=== PATIENT | female | born 1995 | race Hispanic/Latino ===

== ENCOUNTER 2018-01-09 06:48 | Emergency (ER) | payer OTHER ==
[2018-01-09] MEDS ORDERED: ACETAMINOPHEN 500 MG TAB ONE (07:22)
[2018-01-09] MEDS ORDERED: CEFTRIAXONE/SWI 1gm 1 GM/10 ML SYR ONE (07:22)
[2018-01-09 07:43] LABS: Urine Bacteria >50 /HPF (<20)
[2018-01-09 07:44] LABS: Urine Culture Reflex Order NOT NEEDED; Urine Mucus 2+ /HPF (NONE SEEN)
[2018-01-09] MEDS ORDERED: NA CHLORIDE 0.9% 1,000 ML ONE ×3 (07:53→11:40)
[2018-01-09 08:08] LABS: Potassium 3.4 mEq/L (3.6-5.0)
[2018-01-09 08:09] LABS: Protime INR 1.3
[2018-01-09 08:17] LABS: Albumin 3.8 g/dL (3.2-5.5); Bilirubin Direct 0.2 mg/dL (0-0.2); Bilirubin Total 0.4 mg/dL (0.3-1.2); CKMB Creatine Kinase MB 0.5 ng/ml (0.3-4.0); Protein, Total 8.1 g/dL (6.0-8.3)
[2018-01-09] MEDS ORDERED: FENTANYL CITR 100 MCG/2 ML ONE (08:23)
[2018-01-09 08:30] LABS: Absolute Lymphocytes (CBC) 0.5 K/uL (0.7-4.9); Absolute Monocytes 2.7 K/uL (0.1-1.3); Absolute Neutrophil 20.3 K/uL (1.8-8.0); Basophils % 0.2 % (0-1.3); Hematocrit 33.9 % (36.0-45.0); Lymphocytes % 2.3 % (15.3-44.8); MCH 28.1 pg (27.0-35.0); MCV 83.6 fL (80-100); MPV 9.2 fL (7.6-11.3); Monocytes % 11.4 % (3.3-12.3); RBC Red Blood Cell Count 4.05 M/uL (3.86-4.86)
[2018-01-09 08:33] LABS: C-Reactive Protein 254.2 mg/L (<10.0)
[2018-01-09 09:32] LABS: Urine Blood 1+ (NEG); Urine Glucose NEGATIVE (NEG); Urine Protein 3+ (NEG); Urine Specific Gravity 1.025 (1.005-1.030); Urine pH 5.5 (5.0-7.0)
--- NOTE | 2018-01-09 09:56 | RAD REPORT ---
EXAM DESCRIPTION: CT - Stone Protocol - 01/09/2018 9:31 am CLINICAL HISTORY: Abdominal pain. Right flank pain. Right renal transplant. COMPARISON: None. TECHNIQUE: Computed axial tomography of the abdomen pelvis was obtained without oral or IV contrast. Lack of IV and oral contrast limits evaluation of solid organs, bowel, and vessels. Coronal reformat sadia images were obtained and reviewed. All CT scans are performed using dose optimization technique as appropriate and may include automated exposure control or mA/KV adjustment according to patient size. FINDINGS: The kidneys are small and atrophic. A 27 millimeter cystic mass extends off of the upper p ole of the right kidney. Nonobstructing bilateral renal calculi are present. A transplant kidney lies within the lower right abdomen/upper right pelvis. Mild stranding is present within the perirenal fat. Hydronephrosis is not seen. The transplant kidney is enlarged. . The liver, spleen, pancreas and adrenals appear grossly normal There is no evidence of diverticulitis. The appendix appears normal A tampon is present within the vagina IMPRESSION: Enlarged transplant kidney within the lower right abdomen/upper right pelvis with mild s tranding in the right perirenal fat. This is nonspecific. It could indicate infection, inflammation, rejection or acute tubular necrosis. An obstruction is not present
--- NOTE | 2018-01-09 10:27 | RAD REPORT ---
EXAM DESCRIPTION: Emma Single View01/09/2018 7:59 am CLINICAL HISTORY: Fever COMPARISON: none FINDINGS: The lungs appear clear of acute infiltrate. The heart is normal size IMPRESSION: No acute abnormalities displayed
[2018-01-09 10:41] LABS: Blood Morphology Comment NOT SEEN (NOT SEEN); Platelet Estimate ADEQ; Urine White Blood Cell Casts OK
--- NOTE | 2018-01-09 10:55 | RAD REPORT ---
EXAM DESCRIPTION: US - Abdomen Exam Limited - 01/09/2018 8:11 am CLINICAL HISTORY: Abdominal pain. COMPARISON: None. FINDINGS: The gallbladder wall is not thickened. A gallstone is not seen. The biliary tree is normal caliber. IMPRESSION: Unremarkable gallbladder ultrasound.
--- NOTE | 2018-01-09 11:39 | ER ---
Nurse's Notes [facility] Name: Viridiana Hughes Age: 22 yrs Sex: Female : 1995 Arrival Date: 01/09/2018 Time: 06:58 Bed 15 Private MD: Diagnosis: Sepsis;Pyelonephritis, transplanted kidney Presentation: 01/09 07:00 Presenting complaint: Patient states: diagnosed with a UTI couple of days ago sent home sv with antibiotic, doesn't feel any better. c/o suprapubic pain, epigastric pain, right flank pain, dizziness, "off balance." Denies burning with urination and no discharge. Transition of care: patient was not received from another setting of care. Onset of symptoms was January 05, 2018. Risk Assessment: Do you want to hurt yourself or someone else? Patient reports no desire to harm self or others. Care prior to arrival: None. 07:00 Method Of Arrival: Ambulatory sv 07:00 Acuity: KOJO 3 sv 07:00 Initial Sepsis Screen: Does the patient meet any 2 criteria? Temp <36.0*C (96.8*F)) or ss > 38.3*C (100.4*F). HR > 90 bpm. Does the patient have a suspected source of infection? Yes: Dysuria/Frequency/Urgency/UTI. 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 - Social history:: Smoking status: Patient/guardian denies using tobacco, Patient uses alcohol, but reports only rare drinking. - Ebola Screening: : No symptoms or risks identified at this time. Screenin:39 Abuse screen: Denies threats or abuse. Nutritional screening: No deficits noted. em Tuberculosis screening: No symptoms or risk factors identified. Fall Risk None identified. Assessment: 07:30 General: Appears in no apparent distress. uncomfortable, Behavior is calm, cooperative. em Pain: Complains of pain in right lower quadrant and right upper quadrant and suprapubic area Pain currently is 8 out of 10 on a pain scale. Neuro: Level of Consciousness is awake, alert, obeys commands, Oriented to person, place, time, situation. Cardiovascular: Capillary refill < 3 seconds Patient's skin is warm and dry. Respiratory: Airway is patent Respiratory effort is even, unlabored, Respiratory pattern is regular, symmetrical. GI: Abdomen is round non-distended. : Reports burning with urination, urinary frequency. Derm: Skin is intact, Skin is pink, warm \\T\\ dry. Musculoskeletal: Range of motion: intact in all extremities. 07:40 General: The previous assessment is accurate, call light remains within reach. . ss 08:30 Reassessment: Patient appears in no apparent distress at this time. Patient and/or em family updated on plan of care and expected duration. Pain level reassessed. Patient is alert, oriented x 3, equal unlabored respirations, skin warm/dry/pink. 09:30 Reassessment: Patient appears in no apparent distress at this time. Patient and/or em family updated on plan of care and expected duration. Pain level reassessed. Patient is alert, oriented x 3, equal unlabored respirations, skin warm/dry/pink. Patient states feeling better. 10:20 Reassessment: Patient appears in no apparent distress at this time. Patient and/or em family updated on plan of care and expected duration. Pain level reassessed. Patient is alert, oriented x 3, equal unlabored respirations, skin warm/dry/pink. rates pain 3/10 Patient denies pain at this time. 10:47 Reassessment: Patient appears in no apparent distress at this time. Patient and/or em family updated on plan of care and expected duration. Pain level reassessed. Patient is alert, oriented x 3, equal unlabored respirations, skin warm/dry/pink. 11:42 Reassessment: Patient appears in no apparent distress at this time. Patient is alert, em oriented x 3, equal unlabored respirations, skin warm/dry/pink. c/o chills, temp. rechecked 98.6, warm blanket given. Vital Signs: 07:14 BP 107 / 56; Pulse 128; Resp 18; Temp 101.5; Pulse Ox 99% on R/A; Weight 98.88 kg; sv Height 5 ft. 2 in. (157.48 cm); Pain 8/10; 08:36 BP 102 / 54; Pulse 107; Resp 18; Temp 100.3(O); Pulse Ox 99% on R/A; Pain 8/10; em 09:30 BP 97 / 49; Pulse 82; Resp 20; Pulse Ox 100% on R/A; em 10:19 BP 104 / 57; Pulse 82; Resp 16; Temp 98.5(O); Pulse Ox 99% on R/A; mh5 10:48 BP 123 / 63; Pulse 121; Resp 18; Temp 98.3(O); Pulse Ox 100% on R/A; Pain 4/10; em 11:28 BP 117 / 70; Pulse 106; Resp 16; Temp 98.6(O); Pulse Ox 99% on R/A; em 07:14 Body Mass Index 39.87 (98.88 kg, 157.48 cm) sv ED Course: 06:58 Patient arrived in ED. es 06:59 Ligia Giraldo FNP-C is PHCP. snw 06:59 Angel Luis Camilo MD is Attending Physician. snw 07:11 Triage completed. sv 07:15 Arm band placed on right wrist. sv 07:19 Kayden Ventura LVN is Primary Nurse. em 07:32 Urine Culture Sent. mh5 07:32 Urine Microscopic Only Sent. mh5 07:50 Initial lab(s) drawn, by in, sent to lab. Inserted saline lock: 20 gauge in right em antecubital area, using aseptic technique. Blood collected. 07:52 Patient has correct armband on for positive identification. Placed in gown. Bed in low mh5 position. Call light in reach. Side rails up X 1. Pillow given. monitoring and evaluation advisor on. Pulse ox on. NIBP on. 07:56 Ultrasound completed. Patient tolerated well. sg3 07:58 X-ray completed. Portable x-ray completed in exam room. Patient tolerated procedure mh1 well. 07:59 Chest Single View XRAY In Process Unspecified. EDMS 08:11 US Abdomen Limited In Process Unspecified. EDMS 08:49 Radiology exam delayed due to test not completed at this time. cw1 08:52 No provider procedures requiring assistance completed. em 09:31 CT completed. Patient moved to CT via wheelchair. Patient moved back from CT. cw1 09:31 CT Stone Protocol In Process Unspecified. EDMS 12:45 Patient transferred, IV remains in place. ss Administered Medications: 07:50 Drug: Tylenol 1000 mg Route: PO; em 08:47 Follow up: Response: No adverse reaction; Temperature is decreased em 08:00 Drug: Rocephin 1 grams Route: IV; Rate: calculated rate; Site: right antecubital; ss 08:47 Follow up: Response: No adverse reaction; IV Status: Completed infusion em 08:13 Drug: NS 0.9% (30 ml/kg) 30 ml/kg Route: IV; Rate: bolus; Site: right antecubital; em 12:47 Follow up: IV Status: Completed infusion; IV Intake: 2000ml em 08:30 Drug: fentaNYL (PF) 50 mcg Route: IVP; Site: right antecubital; ss 08:48 Follow up: Response: No adverse reaction; Pain is decreased em 11:40 Drug: fentaNYL (PF) 25 mcg Route: IVP; Site: right antecubital; em 12:41 Follow up: Response: No adverse reaction; Pain is decreased em 12:14 Drug: HydroCORTISONE 100 mg Route: IVP; Site: right antecubital; ss 12:41 Follow up: Response: No adverse reaction em 12:37 Drug: NS 0.9% 1000 ml Route: IV; Rate: 125 ml/hr; Site: right antecubital; em 12:41 Follow up: IV Status: Infusion continued upon transfer; IV Intake: 50ml em Point of Care Testing: Blood Glucose: 07:38 Blood Glucose: 118 mg/dL; mh5 Ranges: Intake: 12:41 IV: 50ml; Total: 50ml. em 12:47 IV: 2000ml; Total: 2050ml. em Outcome: 11:38 ER care complete, transfer ordered by . nikolay 12:44 Transferred by ground EMS to [facility], Transfer form completed. ss X-rays sent w/ patient. 12:44 Condition: good 12:44 Instructed on the need for transfer. 12:45 Patient left the ED. ss Addendum: 01/12/2018 17:39 Addendum: Culture Results: Positive urine culture. Phone call Attempt #1 culture report s s faxed to [facility]. Signatures: Dispatcher [employer] Avelina Morton, RN RN Ligia Morataya, STENCIL SPRAYER-C STENCIL SPRAYER-Csnw Germaine Rice Martha 1 Kayden Ventura, HANY ERICN Renea Fleming RN RN Belkis Walter 1 Charisse Gilmore [facility] Joseph, Loulou 3
--- NOTE | 2018-01-09 11:39 | EDPHYS ---
Physician Documentation [facility] Name: Viridiana Hughes Age: 22 yrs Sex: Female : 1995 Arrival Date: 01/09/2018 Time: 06:58 Bed 15 Private MD: ED Physician Angel Luis Camilo HPI: 01/09 07:48 This 22 yrs old Female presents to ER via Ambulatory with complaints of snw Urinary Problem. 07:48 The patient presents with abdominal pain in the lower abdomen, in the right upper snw quadrant, right lower quadrant. Onset: The symptoms/episode began/occurred suddenly, 3 day(s) ago, and became persistent. The symptoms do not radiate. Associated signs and symptoms: Pertinent positives: fever, nausea. The symptoms are described as crampy. Severity of pain: At its worst the pain was moderate in the emergency department the pain is unchanged. The patient has not experienced similar symptoms in the past. The patient has been recently seen by a physician: 2 day(s) ago, with similar presenting complaints, and apparently given a diagnosis of uti - given Nitrofurantoin. 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 - Social history:: Smoking status: Patient/guardian denies using tobacco, Patient uses alcohol, but reports only rare drinking. - Ebola Screening: : No symptoms or risks identified at this time. ROS: 07:47 Eyes: Negative for injury, pain, redness, and discharge, ENT: Negative for injury, snw pain, and discharge, Neck: Negative for injury, pain, and swelling, Cardiovascular: Negative for chest pain, palpitations, and edema, Respiratory: Negative for shortness of breath, cough, wheezing, and pleuritic chest pain, Back: Negative for injury and pain, : Negative for injury, bleeding, discharge, and swelling, MS/Extremity: Negative for injury and deformity, Skin: Negative for injury, rash, and discoloration, Neuro: Negative for headache, weakness, numbness, tingling, and seizure. 07:47 Constitutional: Positive for body aches, chills, fever, malaise, poor PO intake. 07:47 Abdomen/GI: Positive for abdominal pain, nausea, of the suprapubic area, right upper quadrant and right lower quadrant. Exam: 07:45 Head/Face: Normocephalic, atraumatic. Eyes: Pupils equal round and reactive to light, snw extra-ocular motions intact. Lids and lashes normal. Conjunctiva and sclera are non-icteric and not injected. Cornea within normal limits. Periorbital areas with no swelling, redness, or edema. ENT: Nares patent. No nasal discharge, no septal abnormalities noted. Tympanic membranes are normal and external auditory canals are clear. Oropharynx with no redness, swelling, or masses, exudates, or evidence of obstruction, uvula midline. Mucous membranes moist. Neck: Trachea midline, no thyromegaly or masses palpated, and no cervical lymphadenopathy. Supple, full range of motion without nuchal rigidity, or vertebral point tenderness. No Meningismus. Chest/axilla: Normal chest wall appearance and motion. Nontender with no deformity. No lesions are appreciated. 07:45 Respiratory: Lungs have equal breath sounds bilaterally, clear to auscultation and percussion. No rales, rhonchi or wheezes noted. No increased work of breathing, no retractions or nasal flaring. Skin: Warm, dry with normal turgor. Normal color with no rashes, no lesions, and no evidence of cellulitis. MS/ Extremity: Pulses equal, no cyanosis. Neurovascular intact. Full, normal range of motion. Neuro: Awake and alert, GCS 15, oriented to person, place, time, and situation. Cranial nerves II-XII grossly intact. Motor strength 5/5 in all extremities. Sensory grossly intact. Cerebellar exam normal. Normal gait. Psych: Awake, alert, with orientation to person, place and time. Behavior, mood, and affect are within normal limits. 07:45 Back: No spinal tenderness. No costovertebral tenderness. Full range of motion. 07:45 Constitutional: The patient appears alert, awake, anxious, uncomfortable. 07:45 Cardiovascular: Rate: tachycardic, Rhythm: regular, Pulses: no pulse deficits are appreciated, Heart sounds: murmur, Edema: is not appreciated, JVD: is not appreciated. 07:45 Abdomen/GI: Inspection: abdomen appears normal, Palpation: moderate abdominal tenderness, in the suprapubic area and anterior aspect of right lateral abdomen. Vital Signs: 07:14 BP 107 / 56; Pulse 128; Resp 18; Temp 101.5; Pulse Ox 99% on R/A; Weight 98.88 kg; sv Height 5 ft. 2 in. (157.48 cm); Pain 8/10; 08:36 BP 102 / 54; Pulse 107; Resp 18; Temp 100.3(O); Pulse Ox 99% on R/A; Pain 8/10; em 09:30 BP 97 / 49; Pulse 82; Resp 20; Pulse Ox 100% on R/A; em 10:19 BP 104 / 57; Pulse 82; Resp 16; Temp 98.5(O); Pulse Ox 99% on R/A; mh5 10:48 BP 123 / 63; Pulse 121; Resp 18; Temp 98.3(O); Pulse Ox 100% on R/A; Pain 4/10; em 11:28 BP 117 / 70; Pulse 106; Resp 16; Temp 98.6(O); Pulse Ox 99% on R/A; em 07:14 Body Mass Index 39.87 (98.88 kg, 157.48 cm) sv MDM: 07:18 Patient medically screened. snw 10:51 Data reviewed: vital signs, nurses notes. Data interpreted: Pulse oximetry: on room air snw is 100 %. Interpretation: normal. Counseling: I had a detailed discussion with the patient and/or guardian regarding: the historical points, exam findings, and any diagnostic results supporting the discharge/admit diagnosis, lab results, radiology results, the need to transfer to another facility, for higher level of care, [facility] does not immediately have the required specialist. ED course: Upon radiologist read of CT, transfer initiated to [facility] for higher level of care. 11:39 ED course: Dr. Camilo conferenced with [facility] team who agrees to accept pt in snw transfer. 01/09 07:01 Order name: Urine Culture snw 01/09 07:01 Order name: Urine Microscopic Only; Complete Time: 07:53 snw 01/09 07:17 Order name: Basic Metabolic Panel; Complete Time: 09:00 snw 01/09 07:17 Order name: Blood Culture Adult (2) snw 01/09 07:17 Order name: BNP; Complete Time: 09:05 snw 01/09 07:17 Order name: C-Reactive Protein; Complete Time: 09:00 snw 01/09 07:17 Order name: CBC with Diff; Complete Time: 10:51 snw 01/09 07:17 Order name: Ckmb; Complete Time: 09:00 snw 01/09 07:17 Order name: CPK; Complete Time: 09:00 snw 01/09 07:17 Order name: Lactate; Complete Time: 08:14 snw 01/09 07:17 Order name: LFT's; Complete Time: 09:00 snw 01/09 07:17 Order name: Lipase; Complete Time: 09:00 snw 01/09 07:17 Order name: Procalcitonin; Complete Time: 09:05 snw 01/09 07:17 Order name: Protime (+inr); Complete Time: 09:00 snw 01/09 07:01 Order name: Urine Test (obtain specimen); Complete Time: 07:50 snw 01/09 07:17 Order name: Ptt, Activated; Complete Time: 09:00 snw 01/09 07:17 Order name: Sed Rate; Complete Time: 10:51 snw 01/09 07:17 Order name: Chest Single View XRAY; Complete Time: 10:51 snw 01/09 07:17 Order name: US Abdomen Limited; Complete Time: 10:59 snw 01/09 08:31 Order name: CBC Smear Scan; Complete Time: 10:51 EDMS 01/09 08:34 Order name: CT Stone Protocol; Complete Time: 10:01 snw 01/09 09:22 Order name: Urine Dipstick--Ancillary (enter results); Complete Time: 09:35 em1 01/09 09:22 Order name: Urine --Ancillary (enter results); Complete Time: 09:35 em1 01/09 07:01 Order name: Urine Dipstick-Ancillary (obtain specimen); Complete Time: 07:50 snw 01/09 07:17 Order name: Accucheck; Complete Time: 07:39 snw 01/09 07:17 Order name: Cardiac monitoring; Complete Time: 07:50 snw 01/09 07:17 Order name: EKG - Nurse/Tech; Complete Time: 07:39 snw 01/09 07:17 Order name: IV Saline Lock - Large Bore; Complete Time: 07:50 snw 01/09 07:17 Order name: Labs collected and sent; Complete Time: 07:50 snw 01/09 07:17 Order name: O2 Per Protocol; Complete Time: 07:50 snw 01/09 07:17 Order name: O2 Sat Monitoring; Complete Time: 07:50 snw Administered Medications: 07:50 Drug: Tylenol 1000 mg Route: PO; em 08:47 Follow up: Response: No adverse reaction; Temperature is decreased em 08:00 Drug: Rocephin 1 grams Route: IV; Rate: calculated rate; Site: right antecubital; ss 08:47 Follow up: Response: No adverse reaction; IV Status: Completed infusion em 08:13 Drug: NS 0.9% (30 ml/kg) 30 ml/kg Route: IV; Rate: bolus; Site: right antecubital; em 12:47 Follow up: IV Status: Completed infusion; IV Intake: 2000ml em 08:30 Drug: fentaNYL (PF) 50 mcg Route: IVP; Site: right antecubital; ss 08:48 Follow up: Response: No adverse reaction; Pain is decreased em 11:40 Drug: fentaNYL (PF) 25 mcg Route: IVP; Site: right antecubital; em 12:41 Follow up: Response: No adverse reaction; Pain is decreased em 12:14 Drug: HydroCORTISONE 100 mg Route: IVP; Site: right antecubital; ss 12:41 Follow up: Response: No adverse reaction em 12:37 Drug: NS 0.9% 1000 ml Route: IV; Rate: 125 ml/hr; Site: right antecubital; em 12:41 Follow up: IV Status: Infusion continued upon transfer; IV Intake: 50ml em Point of Care Testing: Blood Glucose: 07:38 Blood Glucose: 118 mg/dL; 5 Ranges: Critical Glucose Levels:Adult <50 mg/dl or >400 mg/dl <40 mg/dl or >180 mg/dl Disposition: 13:42 Co-signature as Attending Physician, Angel Luis Camilo MD. Disposition: 01/09/18 11:38 Transfer ordered to [facility]. Diagnosis are Sepsis, Pyelonephritis, transplanted kidney. - Reason for transfer: Higher level of care. - Accepting physician is Dr. Peralta. - Condition is Stable. - Problem is new. - Symptoms are unchanged. Critical care time excluding procedures: 11:40 Critical care time: Bedside Care: 20 minutes, Consultation: 10 minutes. Total time: 30 snw minutes Signatures: Dispatcher [employer] Avelina Morton, RN RN Ligia Morataya, REGRADER-C REGRADER-Csnw Kayden Ventura LVN LVN em Smirch, Shelby, RN RN Angel Luis Johnson MD MD Corrections: (The following items were deleted from the chart) 12:45 11:38 01/09/2018 11:38 Transfer ordered to [facility]. Diagnosis is ss Sepsis; Pyelonephritis, transplanted kidney. Reason for transfer: Higher level of care. Accepting physician is Dr. Peralta. Condition is Stable. Problem is new. Symptoms are unchanged. snw
[2018-01-09] MEDS ORDERED: HYDROCORTISONE SUC 100 MG INJ ONE (11:47)
--- NOTE | 2018-01-10 07:39 | EKG ---
Test Date: 2018-01-09 Test Time: 07:48:59 Level Vial Inside Grinder: JUANITO MEASUREMENT RESULTS: Intervals: Rate: 116 IA: 144 QRSD: 94 QT: 316 QTc: 439 [place]: P: 43 IA: 144 QRS: 23 T: 40 INTERPRETIVE STATEMENTS: Sinus tachycardia Otherwise normal ECG No previous ECG available for comparison Electronically Signed On 01-10-18 07:38:16 CDT by Noé Francisco
== END 2018-01-09 12:45 | disposition short-term general hospital (02) ==
LOC: ER 06:48
DX: A41.9 Sepsis, unspecified organism (principal); N12 Tubulo-interstitial nephritis, not specified as acute or chronic; Z94.0 Kidney transplant status; I10 Essential (primary) hypertension
CPT/HCPCS: 36415; 71045; 74176; 76377; 76705; 80048; 80076; 81003; 81015; 81025; 82550; 82553; 82962; 83605; 83690; 83880; 84145; 85025; 85610; 85652; 85730; 86140; 87040; 87077; 87086; 87088; 87186; 93005; 96361; 96365; 96366; 96375; 99285; J0696; J1720; J3010; J7030